=== PATIENT | male | born 1950 | race Caucasian/White ===

== ENCOUNTER 2017-09-20 08:42 | Emergency (ER) | payer MEDICARE ==
[2017-09-20 09:12] VITALS: BP 178/101
[2017-09-20] MEDS ORDERED: DOXYcycline CAP(*) 100 MG PO ONE (09:57)
--- NOTE | 2017-09-20 09:58 | UC ---
Skin Complaint HPI - HPI Summary HPI Summary: Pt presents with tick bite. He tells me that he was outdoors walking 4 days ago. Earlier this morning he noticed a tick on the LLQ of his abdomen. He was able to remove the tick. Here today with concerns of lyme disease. No fever, chills, headache, dizziness, SOB, chest pain, abdominal pain, N/V/D/C - History of Current Complaint Hx Obtained From: Patient Skin Exposure Onset/Duration: Days Ago Onset Severity: Mild Current Severity: Mild <Srini Garcias - Last Filed: 09/20/17 11:32> <Geraldine Red - Last Filed: 09/20/17 11:37> - History of Current Complaint Chief Complaint: UCGeneralIllness Time Seen by Provider: 09/20/17 09:46 Stated Complaint: TICK BITE - Allergy/Home Medications Allergies/Adverse Reactions: Allergies Allergy/AdvReac Type Severity Reaction Status Date / Time Penicillins Allergy Rash Verified 09/20/17 09:08 Home Medications: Home Medications NK [No Home Medications Reported] 09/20/17 [History Confirmed 09/20/17] Review of Systems Constitutional: Negative Skin: Other - Tick bite LLQ abdomen Eyes: Negative ENT: Negative Respiratory: Negative Cardiovascular: Negative Gastrointestinal: Negative All Other Systems Reviewed And Are Negative: Yes <Srini Garcias Last Filed: 09/20/17 11:32> PMH/Surg Hx/FS Hx/Imm Hx Previously Healthy: Yes - Surgical History Surgical History: Yes Surgery Procedure, Year, and Place: Subdural hematoma surgery - Social History Alcohol Use: None Substance Use Type: None Smoking Status (MU): Never Smoked Tobacco <Srini Garcias - Last Filed: 09/20/17 11:32> Physical Exam Triage Information Reviewed: Yes Appearance: Well-Appearing, Well-Nourished Vital Signs: Initial Vital Signs Temp 97.3 F 09/20/17 09:09 Pulse 67 09/20/17 09:09 Resp 16 09/20/17 09:09 BP 178/101 09/20/17 09:09 Pulse Ox 100 09/20/17 09:09 Vital Signs Reviewed: Yes Neck: Positive: Supple, Nontender, No Lymphadenopathy Respiratory: Positive: Chest non-tender, Lungs clear, Normal breath sounds, No respiratory distress, No accessory muscle use Cardiovascular: Positive: RRR, No Murmur, Pulses Normal Skin: Positive: Other - Approx 5mm diameter area of erythema with central clearing on LLQ abdomen. Consistent with a tick bite. There appears to be no remains of the insect within the skin. There is no bleeding, drainage, or streaking. <Srini Garcias - Last Filed: 09/20/17 11:32> Vital Signs: Initial Vital Signs Temp 97.3 F 09/20/17 09:09 Pulse 67 09/20/17 09:09 Resp 16 09/20/17 09:09 BP 178/101 09/20/17 09:09 Pulse Ox 100 09/20/17 09:09 <Geraldine Red - Last Filed: 09/20/17 11:37> Course/Dx - Course Course Of Treatment: tick bite llq. >72 hours ago. Treatment options discussed. Pt elected for Doxy 200mg now. - Diagnoses Provider Diagnoses: tick bite LLQ abdomen <Srini Garcias - Last Filed: 09/20/17 11:32> Discharge <Srini Garcias - Last Filed: 09/20/17 11:32> <Geraldine Red - Last Filed: 09/20/17 11:37> - Discharge Plan Condition: Stable Disposition: HOME Patient Education Materials: Lyme Disease (ED), Tick Bite (ED) Referrals: Wili Comer MD [Primary Care Provider] - Additional Instructions: If you develop a fever, SOB, chest pain, new or worsening symptoms - please call your PCP or go to the ED. Your blood pressure was high at todays visit. Please see your primary provider within 4 weeks for recheck and re-evaluation. Monitor for signs and symptoms of lyme disease, such as a bulls eye rash, headache, neck pain, fatigue, joint pain or swelling. Attestation Statement User Type: Provider - I was available for consult. This patient was seen by the DAT. The patient was not presented to, seen by, or examined by me. -Dagoberto <Geraldine Red - Last Filed: 09/20/17 11:37>
== END 2017-09-20 10:07 | disposition home or self-care (01) ==
LOC: UCEAST 08:42
DX: S30.861A Insect bite (nonvenomous) of abdominal wall, initial encounter (principal); W57.XXXA Bitten or stung by nonvenomous insect and other nonvenomous arthropods, initial encounter; Y93.01 Activity, walking, marching and hiking; Y92.89 Other specified places as the place of occurrence of the external cause; Y99.9 Unspecified external cause status
CPT/HCPCS: 99211; A9270-GY; G0463